=== PATIENT | male | born 1950 | race Caucasian/White ===

== ENCOUNTER → 2020-10-30 | Outpatient (CLI) | payer MEDICARE ==
[~2020-10-30] MED LIST: ALLO300T PO; ALVESCO INH; AMLO10TA4 PO; APIX2.5T PO; ASCO500T9 PO; ASPI81TA45 PO; ATOR40TA78 PO; CINN500C2 PO; CLOP75TA52 PO; DEXA6TAB6 PO; DIGO125T85 PO; DOXY100T PO; GLIM4TAB8 PO; HYDR25TA6 PO; LEVO150T PO; METF1000 PO; METO-93 PO; METO50TA82 PO; MULT-717 PO; NITR100C6 PO; PIOG45TA63 PO; POTA20TA89 PO; RIVA20TA PO; Ventolin HFA INH
[2020-10-30 11:18] LABS: BASOPHILS % (AUTO) 1 % (0-1); EOSINOPHILS % (AUTO) 1 % (1-7); LYMPHOCYTES % (AUTO) 25 % (22-44); MEAN CORPUSCULAR HEMOGLOBIN 31.7 pg (27.5-34.5); MEAN PLATELET VOLUME 8.4 fL (7.4-10.4); MONOCYTES % (AUTO) 9 % (2-9); NEUTROPHILS % (AUTO) 65 % (42-75); PLATELET COUNT 282 x10^3/uL (130-400); RED BLOOD COUNT 4.35 x10^6/uL (4.38-5.82); RED CELL DISTRIBUTION WIDTH 17.4 % (9.4-14.8)
[2020-10-30 11:19] LABS: MD NO
[2020-10-30 11:24] LABS: ANION GAP 10 mmol/L (5-15); CALCIUM 9.4 mg/dL (8.5-10.1); CHLORIDE 111 mmol/L (98-107); CREATININE 1.13 mg/dL (0.7-1.3)
[2020-10-30 11:34] LABS: INTERNATIONAL NORMALIZED RATIO 1.13 (0.93-1.1); PROTHROMBIN TIME 12.1 Seconds (9.6-11.5)
== END | disposition home or self-care (01) ==
LOC: LAB 10:57
PROVIDERS: ATTEND Internal Medicine Cardiovascular Disease
DX: I48.11 Longstanding persistent atrial fibrillation (principal); E11.65 Type 2 diabetes mellitus with hyperglycemia; I25.9 Chronic ischemic heart disease, unspecified
CPT/HCPCS: 36415; 80048; 85025; 85610; 85730

== ENCOUNTER → 2020-11-01 | Outpatient (CLI) | payer MEDICARE ==
[~2020-11-01] MED LIST changes: +OMNIPAQUE 350 MG/ML, 150 ML BOTTLE ONE
== END | disposition home or self-care (01) ==
LOC: CFH 13:19
PROVIDERS: ATTEND Internal Medicine Clinical Cardiac Electrophysiology
DX: Z20.822 Contact with and (suspected) exposure to COVID-19 (principal); I10 Essential (primary) hypertension; I25.9 Chronic ischemic heart disease, unspecified; I48.11 Longstanding persistent atrial fibrillation; E11.65 Type 2 diabetes mellitus with hyperglycemia; E65 Localized adiposity; J98.4 Other disorders of lung; J84.10 Pulmonary fibrosis, unspecified
CPT/HCPCS: 71046; 75572; 87635; Q9967

== ENCOUNTER 2021-01-18 05:57 | Day surgery (SDC) | payer MEDICARE ==
[~2021-01-18] VITALS: Ht 189.2 cm; Wt 122.7 kg
[~2021-01-18 05:57] MED LIST changes: +ACET325T26 PO; +APIX5TAB PO; +ASCO1TAB4 PO; +COLC0.6C3 PO; +LEVO200T53 PO; +METF10007 PO; -OMNIPAQUE 350 MG/ML, 150 ML BOTTLE ONE; +PANT20TA2 PO; +POTA10TA6 PO; +SOTA80TA18 PO
[2021-01-18 06:38] VITALS: BP 126/65
[2021-01-18] MEDS ORDERED: DIGO125T85 PO (06:38)
[2021-01-18] MEDS ORDERED: SOTA120T26 PO (06:38)
[2021-01-18 07:07] LABS: ANION GAP 8 mmol/L (5-15); CALCIUM 10.2 mg/dL (8.5-10.1); CHLORIDE 106 mmol/L (98-107); CREATININE 1.13 mg/dL (0.7-1.3)
[2021-01-18] MEDS ORDERED: PROPOFOL 10 MG/ML, 20ML ONE (10:01)
== END 2021-01-18 09:16 | disposition home or self-care (01) ==
LOC: CACL 05:57
PROVIDERS: ATTEND Internal Medicine Clinical Cardiac Electrophysiology
DX: I48.19 Other persistent atrial fibrillation (principal); I25.9 Chronic ischemic heart disease, unspecified; I10 Essential (primary) hypertension; E11.9 Type 2 diabetes mellitus without complications; Z79.01 Long term (current) use of anticoagulants; Z79.82 Long term (current) use of aspirin; Z79.84 Long term (current) use of oral hypoglycemic drugs; Z79.890 Hormone replacement therapy; Z79.899 Other long term (current) drug therapy
CPT/HCPCS: 36415; 80048; 92960; 93005; J2704